=== PATIENT | male | born 1955 | race Native Hawaiian/Other Pacific Islander ===

== ENCOUNTER 2018-01-16 10:33 | Emergency (ER) | payer BC ==
[2018-01-16 10:48] VITALS: BMI 25.7
[2018-01-16] MEDS ORDERED: Lidocaine 5% Patch TD STA (10:49)
[2018-01-16] MEDS ORDERED: Sodium Chloride 0.9% 1,000 ML IV STA (10:49)
--- NOTE | 2018-01-16 10:53 | ED PDOC ---
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 No numbness, tingles, weakness. No new injury. Has had cyst removed 2008 from thecal sac lumbar area. had MRI done 1 year ago and showed herniated discs. Here today as pain getting worse. Pain going down both legs. No incontinence or constipation. Dr. Wiley sees pt. No abd pain, dysuria. Past Medical History Reviewed: Nursing Documentation, Vital Signs - Medical History PMH: Rheumatoid Arthritis Other PMH: osteoporosis - Surgical History Other surgeries: lumbar cyst removed - Family History Family History: States: Unknown Family Hx - Living Arrangements Living Arrangements: With Family - Home Medications Home Medications: Ambulatory Orders Medication Instructions Recorded Dexamethasone [Decadron] 4 mg PO DAILY 5 Days tab 01/16/18 traMADol [Ultram] 25 mg PO BID PRN 3 Days tab 01/16/18 - Allergies Allergies/Adverse Reactions: Allergies Allergy/AdvReac Type Severity Reaction Status Date / Time No Known Allergies Allergy Verified 01/16/18 10:53 Review of Systems ROS Statement: Except As Marked, All Systems Reviewed And Found Negative Musculoskeletal: Positive for: Back Pain Physical Exam - Reviewed Nursing Documentation Reviewed: Yes Vital Signs Reviewed: Yes - Physical Exam Appears: Positive for: Non-toxic, No Acute Distress Head Exam: Positive for: ATRAUMATIC, NORMAL INSPECTION, NORMOCEPHALIC Skin: Positive for: Normal Color, Warm, DRY Neck: Positive for: Normal, Painless ROM Cardiovascular/Chest: Positive for: Regular Rate, Rhythm Respiratory: Positive for: CNT, Normal Breath Sounds Gastrointestinal/Abdominal: Positive for: Normal Exam, Soft. Negative for: Tenderness Back: Positive for: Other (tender across lower; no deformity; surgical scar present with no erythema). Negative for: L CVA Tenderness, R CVA Tenderness Extremity: Positive for: Other (straight leg positive 20* b/l). Negative for: Normal ROM (limted due to pain in the back), Tenderness, Pedal Edema Neurologic/Psych: Positive for: Alert, Oriented. Negative for: Motor/Sensory Deficits - Laboratory Results Result Diagrams: 01/16/18 10:00 01/16/18 10:00 Interpretation Of Abn Labs: no acute - ECG ECG: Positive for: Interpreted By Me, Viewed By Me ECG Rhythm: Positive for: Normal QRS, Normal ST Segment, Sinus Rhythm - CT Scan/US MRI Other Rad Studies (CT/US): Read By Radiologist Other Rad Interpretation: stress fx - Progress ED Course And Treament: 1530: Stable. AAOx3. Feels much better. Spoke with Dr. Wiley. He reviewed MRI and aware of presentation. He spoke with pt. on the phone. Pt. to be dc after ct lumbar and x-rays. Will give decadron and tramadol. Pt. able to ambulate with no issues. Disposition - Clinical Impression Clinical Impression: Lumbar stress fracture - Patient ED Disposition Is Patient to be Admitted: No Counseled Patient/Family Regarding: Studies Performed, Diagnosis, Need For Followup, Rx Given - Disposition Referrals: Robin Wiley MD [Staff Provider] - 01/19/18 Disposition: Routine/Home Disposition Time: 15:40 Condition: STABLE Additional Instructions: Return if not better in 3 days. Prescriptions: Dexamethasone [Decadron] 4 mg PO DAILY 5 Days tab traMADol [Ultram] 25 mg PO BID PRN 3 Days tab PRN Reason: Pain, Moderate (4-7) Instructions: Low Back Pain in Adults Forms: [facility] (Maltese)
[2018-01-16] MEDS ORDERED: Lidocaine 5% Patch TD ONE (11:00)
[2018-01-16 11:11] LABS: BASO # 0.1 K/uL (0.0-0.2); BASO % 1.3 % (0.0-2.0); EOS # 0.1 K/uL (0.0-0.7); EOS % 1.3 % (0.0-4.0); HEMOGLOBIN 15.1 g/dL (12.0-18.0); LYMPH # 1.3 K/uL (1.0-4.3); LYMPH % 14.2 % (20.0-40.0); MEAN CORPUSCULAR HEMOGLOBIN 33.5 pg (27.0-31.0); MEAN CORPUSCULAR HGB CONC 34.6 g/dL (33.0-37.0); MEAN PLATELET VOLUME 7.5 fl (7.2-11.7); MONO # 0.9 K/uL (0.0-0.8); MONO % 10.2 % (0.0-10.0); NEUT # 6.5 K/uL (1.8-7.0); RBC 4.5 Mil/uL (4.40-5.90); RED CELL DISTRIBUTION WIDTH 14.1 % (11.5-14.5); WHITE BLOOD COUNT 8.9 K/uL (4.8-10.8)
[2018-01-16 11:22] LABS: BLOOD UREA NITROGEN 11 mg/dl (9-20); CALCIUM 9.6 mg/dL (8.4-10.2); GFR AFRICAN-AMERICAN > 60; GFR NON-AFRICAN AMERICAN > 60
--- NOTE | 2018-01-16 13:39 | MRI ---
Date of service: 01/16/2018 PROCEDURE: MR LUMBAR SPINE WITHOUT CONTRAST HISTORY: pain COMPARISON: None available. TECHNIQUE: Multiecho multiplanar sequences were performed through the lumbar spine without the use of intravenous contrast. FINDINGS: Normal lumbar lordosis. Vertebral body heights are preserved. Marrow signal is remarkable for mild amount of edema at the right posterior right pedicle at L5 with edema also seen at the posterior left pedicle and lamina extending into the paraspinal musculature minimally. This pattern may represent stress fractures. No definitive spondylolysis is identified at this time however. Conus medullaris unremarkable at the level of L1 inferior endplate. Prevertebral and paraspinal soft tissues appear unremarkable. Incidental note is made of marked distention of the urinary bladder however, partially captured in this exam. T12-L1: No disc herniation, spinal canal stenosis or neural foraminal narrowing. L1-2: No disc herniation, spinal canal stenosis or neural foraminal narrowing. L2-3: No disc herniation, spinal canal stenosis or neural foraminal narrowing. L3-4: No disc herniation, spinal canal stenosis or neural foraminal narrowing. L4-5: A circumferential disc bulge is appreciated which appears mild but combines with marked facet joint degenerative changes to result in a moderate to severe central canal stenosis and mild bilateral neural foraminal stenosis. No definite disc herniation. L5-S1: No disc herniation, spinal canal stenosis or neural foraminal narrowing. Limited disc bulging is circumferential with moderate facet joint degenerative arthropathy appreciated. OTHER FINDINGS: None. IMPRESSION: 1. Moderate to severe central canal stenosis on a degenerative basis at L4-5. Mild bilateral neural foraminal stenosis. 2. No definite acute disc herniation appreciated throughout the examination. 3. Mild edema at the posterior segments of the right and left pedicles as well as left lamina in a pattern that may reflect stress fractures. Local soft tissue edema is appreciate accompany these findings in the paraspinal musculature.
--- NOTE | 2018-01-16 15:54 | CT ---
Date of service: 01/16/2018 PROCEDURE: CT Lumbar Spine without contrast HISTORY: pain in back COMPARISON: None available. TECHNIQUE: Axial computed tomography images were obtained of the lumbar spine without the use of intravenous contrast. Coronal and sagittal reformatted images were created and reviewed. Radiation dose: Total exam DLP = 932.52 mGy-cm. This CT exam was performed using one or more of the following dose reduction techniques: Automated exposure control, adjustment of the mA and/or kV according to patient size, and/or use of iterative reconstruction technique. FINDINGS: VERTEBRAE: Although only a partial spondylolysis identified at the left pars interarticularis and none on the right, there is a minimal grade 1 spondylolisthesis interrupting the normal lumbar curvature at L4-5 with L4 slightly anterior to L5. To body heights are normal as well as disc interspace heights. Multilevel facet joint degenerative arthropathy is appreciated, concentrated at the inferior lumbar levels. There is no destructive bony lesion appreciated and limited multilevel mid inferior lumbar spondylosis is appreciated. No focal pathology seen in the sacrum other than bilateral sacroiliac joint degenerative changes and prevertebral as well as paraspinal soft tissues appear diffusely unremarkable. Note is made of a punctate intrarenal calculus at the upper pole right kidney. Distended urinary bladder partially captured. DISCS/SPINAL CANAL/NEURAL FORAMINA: L1-2: Unremarkable. L2-3: Circumferential disc bulging is appreciated encroaching the lateral recesses symmetrically without generalized central canal stenosis. Borderline bilateral neural foraminal stenosis however. L3-4: Circumferential disc bulging is appreciated encroaching the lateral recesses symmetrically without generalized central canal stenosis. Borderline bilateral neural foraminal stenosis however. L4-5: Patient status post partial left hemilaminectomy here. Moderate to severe central stenosis is partially decompressed by this partial laminectomy. A circumferential disc bulge is appreciated combined with facet joint degenerative arthropathy and ligamentum flavum hypertrophy resulting in this stenosis. Moderate to severe bilateral neural foraminal stenoses are identified bilaterally. L5-S1: Unremarkable. PARASPINAL SOFT TISSUES: Unremarkable. OTHER FINDINGS: None. IMPRESSION: 1. Moderate to severe central canal stenosis at L4-5 is partially decompressed by a partial left hemilaminectomy with moderate severe bilateral neural foraminal stenosis appreciated on a degenerative basis. 2. Limited grade 1 spondylolisthesis L4-5 with partial spondylolysis left L4. 3. Multilevel generalized disc bulging with mild symmetric bilateral lateral recess narrowing at L2-3 and L3-4.
[2018-01-16 16:10] VITALS: BP 120/70; PULSE 74; RESP 20; TEMP 98; O2SAT 98
--- NOTE | 2018-01-16 16:42 | RAD ---
Date of service: 01/16/2018 PROCEDURE: Radiographs of the Lumbar Spine. HISTORY: pain in back COMPARISON: No prior. FINDINGS: BONES: Normal alignment. No listhesis. No fracture. DISC SPACES: Unremarkable. OTHER FINDINGS: Diminished range of motion with flexion and to lesser extent extension. IMPRESSION: Mildly limited range of motion with flexion and extension views. Otherwise unremarkable study.
--- NOTE | 2018-01-17 20:06 | CARD ---
APPROVED REPORT Date of service: 01/16/2018 EKG Measurement Heart [id number] <Conclusion> Normal sinus rhythm Low voltage QRS Septal infarct, age undetermined Abnormal ECG
== END 2018-01-16 16:09 | disposition home or self-care (01) ==
LOC: H.ER 10:33 → MERGE 10:33 → H.ER 16:09
DX: M48.46XA Fatigue fracture of vertebra, lumbar region, initial encounter for fracture (principal); M06.9 Rheumatoid arthritis, unspecified; M81.0 Age-related osteoporosis without current pathological fracture